=== PATIENT | female | born 1945 | race Caucasian/White ===

== ENCOUNTER 2022-07-17 11:40 | Outpatient (CLI) | payer BC, MEDICARE | END 2022-07-17 11:41 | disposition home or self-care (01) | LOC: CSHRAD 11:40 | PROVIDERS: ATTEND Nurse Practitioner Family | DX: J31.0 Chronic rhinitis (principal) | CPT/HCPCS: 71046 ==

== ENCOUNTER 2022-08-29 11:26 | Outpatient (CLI) | payer BC, MEDICARE | END 2022-08-29 11:27 | disposition home or self-care (01) | LOC: CSHRAD 11:26 | PROVIDERS: ATTEND Internal Medicine | DX: R05.9 Cough, unspecified (principal) | CPT/HCPCS: 71046 ==

== ENCOUNTER 2023-02-19 13:19 | Outpatient (CLI) | payer BC, MEDICARE | END 2023-02-19 13:20 | disposition home or self-care (01) | LOC: CSHMAMMO 13:19 | PROVIDERS: ATTEND Internal Medicine | DX: Z12.31 Encounter for screening mammogram for malignant neoplasm of breast (principal); Z13.820 Encounter for screening for osteoporosis; Z78.0 Asymptomatic menopausal state; M85.832 Other specified disorders of bone density and structure, left forearm | CPT/HCPCS: 77063; 77067; 77080 ==

== ENCOUNTER 2023-03-21 20:49 | Inpatient (IN) | payer BC, MEDICARE ==
[~2023-03-21 20:49] MED LIST: Iopamidol 300 61% 100 ML VIAL FS ONE
[2023-03-21 21:56] LABS: Bilirubin Neg (Negative); Blood, Urine Negative (Negative); Clarity Clear (Clear); Glucose, Urine (Dipstick) Normal (Negative); Ketone, Urine 15 mg/dL (Negative); Leukocyte Negative (Negative); Nitrite Negative (Negative); Protein, Urine (Dipstick) Negative (Neg-Trace); Urobilinogen Normal mg/dL (Less than 2)
[2023-03-21 22:11] LABS: ALT (SGPT) 9 U/L (8-55); AST (SGOT) 21 U/L (5-34); Albumin 4.5 g/dL (3.4-4.8); Alkaline Phosphatase 61 U/L (40-110); Anion Gap 17 mmol/L (10-20); BUN (Urea Nitrogen) 26 mg/dL (9.8-20.1); Bilirubin, Total 0.5 mg/dL (0.2-1.2); Calc. Creatinine Clearance 0 mL/min (70-130); Calcium 9.3 mg/dL (7.8-10.44); Carbon Dioxide 22 mmol/L (23-31); Chloride 103 mmol/L (98-107); Estimated GFR 45; Globulin 2.4 g/dL (2.4-3.5); Glucose 105 mg/dL (83-110); Potassium 3.6 mmol/L (3.5-5.1); Protein, Total 6.9 g/dL (5.8-8.1); Sodium 138 mmol/L (136-145)
[2023-03-21 22:12] LABS: Bacteria/HPF None Seen HPF (None Seen); CAUTI Indications for Culture Alt mental st,lethar; RBC/HPF None Seen HPF (0-3); Squamous Epithelial 0-3 HPF (0-3); WBC/HPF 0-3 HPF (0-3)
[2023-03-21 22:12] LABS: #Basophils 0.1 10x3/uL (0.0-0.2); #Monocytes 1.2 10x3/uL (0.0-1.1); #Neutrophils 17.5 10x3/uL (1.5-8.4); %Basophils 0.4 % (0.0-2.0); %Eosinophils 0.1 % (0.0-6.0); %Lymphocytes 2.2 % (18.0-47.0); %Monocytes 6.3 % (0.0-10.0); %Neutrophils 90.3 % (40.0-75.0); Hemoglobin 12.4 g/dL (12.0-15.5); Mean Corpuscular HGB CONC 32.6 g/dL (32.0-36.0); Mean Corpuscular Hemoglobin 29.5 pg (27.0-33.0); Mean Corpuscular Volume 90.3 fl (81.6-98.3); Mean Platelet Volume 9.9 fl (7.4-10.4); Platelet Count 246 10x3/uL (150-450); RBC Distribution Width 13.7 % (11.5-14.5); Red Blood Cell (RBC) Count 4.21 10x6/uL (3.90-5.03); White Blood Cell (WBC) Count 19.4 10x3/uL (3.5-10.5)
[2023-03-21 22:14] LABS: Urine Culture Reflex No No
[2023-03-21 22:19] LABS: Troponin I 0.028 ng/mL (< 0.028)
[2023-03-21 22:22] LABS: SARS-CoV-2 NAA Rapid Test Not Detected (NotDetected)
[2023-03-22] MEDS ORDERED: Acetaminophen 500 MG TAB ONE (01:28)
[2023-03-22] MEDS ORDERED: Piperacillin/Tazobactam 3.375 GM VIAL ONE (01:32)
[2023-03-22] MEDS ORDERED: Guaifenesin DM 100-10/5 ML UDCUP PO PRN (01:45)
[2023-03-22] MEDS ORDERED: HYDROcodone/Acetaminophen 5/325 mg Tablet PO PRN (01:45)
[2023-03-22] MEDS ORDERED: Senokot S 8.6-50 MG TAB PO PRN (01:45)
[2023-03-22] MEDS ORDERED: Calcium Carbonate 500 MG ChewTAB PO PRN (01:45)
[2023-03-22] MEDS ORDERED: Ondansetron PF 4 MG/2 ML Vial IVP PRN (01:45)
[2023-03-22] MEDS ORDERED: Lactated Ringer's 1,000 ML IV SCH (02:00)
[2023-03-22 03:21] VITALS: BMI 30.2
[2023-03-22] MEDS: Piperacillin/Tazobactam 3.375 GM in Sodium Chloride 0.9% 100 ML IVPB SCH ×3 (06:29→21:50)
[2023-03-22] MEDS ORDERED: Dronedarone HCl 400 MG TAB PO SCH (09:00)
[2023-03-22 09:01] LABS: ALT (SGPT) 8 U/L (8-55); AST (SGOT) 21 U/L (5-34); Alkaline Phosphatase 54 U/L (40-110); Anion Gap 18 mmol/L (10-20); BUN (Urea Nitrogen) 23 mg/dL (9.8-20.1); Bilirubin, Total 0.5 mg/dL (0.2-1.2); CRP (Inflammatory) 14.48 mg/dL (= or < 0.5); Calc. Creatinine Clearance 44 mL/min (70-130); Carbon Dioxide 22 mmol/L (23-31); Chloride 102 mmol/L (98-107); Estimated GFR 45; Globulin 2.7 g/dL (2.4-3.5); Glucose 98 mg/dL (83-110); Hematocrit 35.4 % (34.9-44.5); Hemoglobin 11.7 g/dL (12.0-15.5); Lipase 29 U/L (8-78); Mean Corpuscular HGB CONC 33.1 g/dL (32.0-36.0); Mean Corpuscular Hemoglobin 29.6 pg (27.0-33.0); Mean Corpuscular Volume 89.6 fl (81.6-98.3); Platelet Count 258 10x3/uL (150-450); Potassium 4.4 mmol/L (3.5-5.1); Protein, Total 6.7 g/dL (5.8-8.1); RBC Distribution Width 13.9 % (11.5-14.5); Red Blood Cell (RBC) Count 3.95 10x6/uL (3.90-5.03); Sodium 138 mmol/L (136-145)
[2023-03-22] MEDS: Metoprolol Tartrate 25 MG TAB PO SCH ×2 (09:24→09:55)
[2023-03-22] MEDS: Lactated Ringer's 1,000 ML IV SCH ×2 (09:54→16:31)
[2023-03-22] MEDS: Aspirin 81 mg Enteric Coated Tablet PO SCH (09:54)
[2023-03-22] MEDS: Famotidine/PF 20 mg/2ml Vial SLOW IVP SCH (09:55)
[2023-03-22] MEDS: Saccharomyces boulardii 250 MG CAP PO SCH (09:56)
[2023-03-22 09:57] LABS: MDiff Complete? YES
[2023-03-22 10:32] LABS: Band 3 % (5-11); Lymphocytes 1 % (21-51); Monocytes 2 % (0-10); Neutrophil 92 % (42-75); Reactive Lymphocytes 2 % (0-10)
[2023-03-22 10:33] LABS: Platelet Adequacy Comment Appears Adequate; RBC Morph Comment Within Normal Limits
[2023-03-22] MEDS: Acetaminophen 325 MG TAB PO PRN ×2 (10:50→20:41)
[2023-03-22] MEDS ORDERED: Acetaminophen 500 MG TAB PO SCH (12:00)
[2023-03-22] MEDS: Dronedarone HCl 400 MG TAB PO SCH (16:31)
[2023-03-22] MEDS: Rosuvastatin 20 MG TAB PO SCH (20:38)
[2023-03-23] MEDS ORDERED: Acetaminophen 325 MG TAB PO SCH (03:45)
[2023-03-23] MEDS: Lactated Ringer's 1,000 ML IV SCH ×2 (04:32→08:03)
[2023-03-23] MEDS: Piperacillin/Tazobactam 3.375 GM in Sodium Chloride 0.9% 100 ML IVPB SCH ×3 (06:07→22:15)
[2023-03-23 06:16] LABS: #Basophils 0.1 10x3/uL (0.0-0.2); #Eosinphils 0.1 10x3/uL (0.0-0.5); #Monocytes 0.6 10x3/uL (0.0-1.1); #Neutrophils 12.9 10x3/uL (1.5-8.4); %Basophils 0.4 % (0.0-2.0); %Eosinophils 0.5 % (0.0-6.0); %Lymphocytes 6.9 % (18.0-47.0); %Monocytes 4.1 % (0.0-10.0); %Neutrophils 87.7 % (40.0-75.0); Hematocrit 34.9 % (34.9-44.5); Hemoglobin 11.6 g/dL (12.0-15.5); Mean Corpuscular HGB CONC 33.2 g/dL (32.0-36.0); Mean Corpuscular Hemoglobin 30.3 pg (27.0-33.0); Mean Corpuscular Volume 91.1 fl (81.6-98.3); Mean Platelet Volume 10.6 fl (7.4-10.4); Platelet Count 281 10x3/uL (150-450); RBC Distribution Width 14.3 % (11.5-14.5); Red Blood Cell (RBC) Count 3.83 10x6/uL (3.90-5.03); White Blood Cell (WBC) Count 14.7 10x3/uL (3.5-10.5)
[2023-03-23 06:19] LABS: ALT (SGPT) 9 U/L (8-55); AST (SGOT) 24 U/L (5-34); Albumin 3.7 g/dL (3.4-4.8); Alkaline Phosphatase 53 U/L (40-110); Anion Gap 14 mmol/L (10-20); BUN (Urea Nitrogen) 12 mg/dL (9.8-20.1); Bilirubin, Total 0.4 mg/dL (0.2-1.2); Calc. Creatinine Clearance 66 mL/min (70-130); Calcium 9.1 mg/dL (7.8-10.44); Carbon Dioxide 23 mmol/L (23-31); Chloride 105 mmol/L (98-107); Estimated GFR 73; Globulin 2.6 g/dL (2.4-3.5); Glucose 83 mg/dL (83-110); Lipase 28 U/L (8-78); Magnesium 1.8 mg/dL (1.6-2.6); Potassium 3.9 mmol/L (3.5-5.1); Protein, Total 6.3 g/dL (5.8-8.1); Sodium 138 mmol/L (136-145)
[2023-03-23] MEDS: Dronedarone HCl 400 MG TAB PO SCH ×2 (09:46→17:49)
[2023-03-23] MEDS: Saccharomyces boulardii 250 MG CAP PO SCH (09:46)
[2023-03-23] MEDS: Famotidine/PF 20 mg/2ml Vial SLOW IVP SCH ×2 (09:46→20:22)
[2023-03-23] MEDS: Aspirin 81 mg Enteric Coated Tablet PO SCH (09:46)
[2023-03-23] MEDS: Acetaminophen 325 MG TAB PO PRN (19:21)
[2023-03-23] MEDS: Rosuvastatin 20 MG TAB PO SCH (20:22)
[2023-03-23] MEDS: Amlodipine 10 MG TAB PO SCH (22:14)
[2023-03-24] MEDS: Acetaminophen 325 MG TAB PO PRN ×3 (04:08→20:39)
[2023-03-24 04:56] LABS: #Basophils 0.1 10x3/uL (0.0-0.2); #Eosinphils 0.3 10x3/uL (0.0-0.5); #Monocytes 0.9 10x3/uL (0.0-1.1); #Neutrophils 9.1 10x3/uL (1.5-8.4); %Basophils 0.5 % (0.0-2.0); %Eosinophils 2.3 % (0.0-6.0); %Lymphocytes 14.5 % (18.0-47.0); %Monocytes 7.1 % (0.0-10.0); %Neutrophils 75.2 % (40.0-75.0); Hematocrit 35.3 % (34.9-44.5); Hemoglobin 11.7 g/dL (12.0-15.5); Mean Corpuscular HGB CONC 33.1 g/dL (32.0-36.0); Mean Corpuscular Hemoglobin 29.6 pg (27.0-33.0); Mean Corpuscular Volume 89.4 fl (81.6-98.3); Mean Platelet Volume 10.6 fl (7.4-10.4); Platelet Count 213 10x3/uL (150-450); RBC Distribution Width 13.8 % (11.5-14.5); Red Blood Cell (RBC) Count 3.95 10x6/uL (3.90-5.03)
[2023-03-24 05:15] LABS: ALT (SGPT) 10 U/L (8-55); AST (SGOT) 26 U/L (5-34); Albumin 3.9 g/dL (3.4-4.8); Alkaline Phosphatase 53 U/L (40-110); Anion Gap 16 mmol/L (10-20); BUN (Urea Nitrogen) 7 mg/dL (9.8-20.1); Bilirubin, Total 0.3 mg/dL (0.2-1.2); Calc. Creatinine Clearance 68 mL/min (70-130); Calcium 9.4 mg/dL (7.8-10.44); Carbon Dioxide 22 mmol/L (23-31); Chloride 105 mmol/L (98-107); Estimated GFR 76; Globulin 2.9 g/dL (2.4-3.5); Glucose 73 mg/dL (83-110); Potassium 3.9 mmol/L (3.5-5.1); Protein, Total 6.8 g/dL (5.8-8.1); Sodium 139 mmol/L (136-145)
[2023-03-24] MEDS: Piperacillin/Tazobactam 3.375 GM in Sodium Chloride 0.9% 100 ML IVPB SCH ×2 (06:01→19:50)
[2023-03-24 06:55] LABS: Magnesium 1.8 mg/dL (1.6-2.6)
[2023-03-24] MEDS: Lactated Ringer's 1,000 ML IV SCH (07:05)
[2023-03-24] MEDS: Aspirin 81 mg Enteric Coated Tablet PO SCH (10:54)
[2023-03-24] MEDS: Saccharomyces boulardii 250 MG CAP PO SCH (10:54)
[2023-03-24] MEDS: Famotidine/PF 20 mg/2ml Vial SLOW IVP SCH ×2 (10:55→20:07)
[2023-03-24] MEDS ORDERED: Vancomycin 1.5 GRAM/300 ML BAG 1.5 GM in Premix Bag 1 BAG IVPB SCH (11:30)
[2023-03-24] MEDS: Dronedarone HCl 400 MG TAB PO SCH ×2 (13:39→16:45)
[2023-03-24] MEDS: Lidocaine 4% Patch TD SCH (13:39)
[2023-03-24] MEDS: Diclofenac 1% 50 GM TOPICAL GEL TP SCH ×3 (13:43→20:07)
[2023-03-24] MEDS: metroNIDAZOLE 500 MG TAB PO SCH ×2 (16:34→20:05)
[2023-03-24] MEDS: hydrALAZINE 25 MG TAB PO SCH (20:04)
[2023-03-24] MEDS: Rosuvastatin 20 MG TAB PO SCH (20:05)
[2023-03-24] MEDS: Amlodipine 10 MG TAB PO SCH (20:05)
[2023-03-24] MEDS: Cefepime 2 GM in Sodium Chloride 0.9% 100 ML IVPB SCH (20:07)
[2023-03-24 22:38] LABS: Campy jejuni + coli by PCR Negative (Negative); STEC Shiga Toxin 1+2 Negative (Negative); Salmonella spp. by PCR Negative (Negative); Shigella spp + EIEC by PCR Negative (Negative)
[2023-03-24] MEDS: Transdermal Patch Removal TOP SCH (23:45)
[2023-03-25] MEDS: Lactated Ringer's 1,000 ML IV SCH (00:30)
[2023-03-25 05:01] LABS: #Basophils 0.1 10x3/uL (0.0-0.2); #Eosinphils 0.3 10x3/uL (0.0-0.5); #Monocytes 0.5 10x3/uL (0.0-1.1); #Neutrophils 5.8 10x3/uL (1.5-8.4); %Eosinophils 3.6 % (0.0-6.0); %Lymphocytes 18.4 % (18.0-47.0); %Monocytes 6.5 % (0.0-10.0); %Neutrophils 69.8 % (40.0-75.0); Hematocrit 34.9 % (34.9-44.5); Hemoglobin 11.7 g/dL (12.0-15.5); Mean Corpuscular HGB CONC 33.5 g/dL (32.0-36.0); Mean Corpuscular Hemoglobin 29.5 pg (27.0-33.0); Mean Corpuscular Volume 87.9 fl (81.6-98.3); Mean Platelet Volume 10.3 fl (7.4-10.4); Platelet Count 240 10x3/uL (150-450); RBC Distribution Width 13.5 % (11.5-14.5); Red Blood Cell (RBC) Count 3.97 10x6/uL (3.90-5.03); White Blood Cell (WBC) Count 8.3 10x3/uL (3.5-10.5)
[2023-03-25 05:09] LABS: ALT (SGPT) 8 U/L (8-55); AST (SGOT) 19 U/L (5-34); Albumin 3.9 g/dL (3.4-4.8); Alkaline Phosphatase 59 U/L (40-110); Anion Gap 15 mmol/L (10-20); BUN (Urea Nitrogen) 7 mg/dL (9.8-20.1); Bilirubin, Total 0.4 mg/dL (0.2-1.2); Calc. Creatinine Clearance 64 mL/min (70-130); Calcium 9.6 mg/dL (7.8-10.44); Carbon Dioxide 22 mmol/L (23-31); Chloride 107 mmol/L (98-107); Estimated GFR 71; Globulin 2.7 g/dL (2.4-3.5); Glucose 96 mg/dL (83-110); Magnesium 1.7 mg/dL (1.6-2.6); Potassium 3.5 mmol/L (3.5-5.1); Protein, Total 6.6 g/dL (5.8-8.1); Sodium 140 mmol/L (136-145)
[2023-03-25] MEDS: Losartan Potassium 50 MG TAB PO SCH (10:03)
[2023-03-25] MEDS: hydrALAZINE 25 MG TAB PO SCH ×2 (10:04→22:04)
[2023-03-25] MEDS: Dronedarone HCl 400 MG TAB PO SCH ×2 (10:05→17:46)
[2023-03-25] MEDS: Saccharomyces boulardii 250 MG CAP PO SCH (10:06)
[2023-03-25] MEDS: Aspirin 81 mg Enteric Coated Tablet PO SCH (10:07)
[2023-03-25] MEDS: metroNIDAZOLE 500 MG TAB PO SCH ×3 (10:07→22:03)
[2023-03-25] MEDS: DULoxetine 30 MG CAP PO SCH (10:07)
[2023-03-25] MEDS: Acetaminophen 325 MG TAB PO PRN (10:09)
[2023-03-25] MEDS: Cefepime 2 GM in Sodium Chloride 0.9% 100 ML IVPB SCH ×2 (10:09→22:59)
[2023-03-25] MEDS: Famotidine/PF 20 mg/2ml Vial SLOW IVP SCH ×2 (10:14→22:04)
[2023-03-25] MEDS: Lidocaine 4% Patch TD SCH ×2 (10:15→22:04)
[2023-03-25] MEDS: Diclofenac 1% 50 GM TOPICAL GEL TP SCH ×4 (11:42→23:10)
[2023-03-25] MEDS ORDERED: Vancomycin HCl 1 GM in Sodium Chloride 0.9% 250 ML 250 ML IVPB SCH (14:00)
[2023-03-25] MEDS: Apixaban 5 MG TAB PO SCH (22:03)
[2023-03-25] MEDS: Amlodipine 10 MG TAB PO SCH (22:03)
[2023-03-25] MEDS: Rosuvastatin 20 MG TAB PO SCH (22:04)
[2023-03-25] MEDS: Transdermal Patch Removal TOP SCH (23:10)
[2023-03-26 04:30] LABS: #Basophils 0.1 10x3/uL (0.0-0.2); #Eosinphils 0.4 10x3/uL (0.0-0.5); #Monocytes 0.8 10x3/uL (0.0-1.1); #Neutrophils 5.8 10x3/uL (1.5-8.4); %Basophils 0.8 % (0.0-2.0); %Eosinophils 4.2 % (0.0-6.0); %Lymphocytes 18.2 % (18.0-47.0); %Neutrophils 66.5 % (40.0-75.0); Hematocrit 34.7 % (34.9-44.5); Hemoglobin 11.7 g/dL (12.0-15.5); Mean Corpuscular HGB CONC 33.7 g/dL (32.0-36.0); Mean Corpuscular Hemoglobin 29.1 pg (27.0-33.0); Mean Corpuscular Volume 86.3 fl (81.6-98.3); Mean Platelet Volume 10.1 fl (7.4-10.4); Platelet Count 257 10x3/uL (150-450); RBC Distribution Width 13.2 % (11.5-14.5); Red Blood Cell (RBC) Count 4.02 10x6/uL (3.90-5.03); White Blood Cell (WBC) Count 8.8 10x3/uL (3.5-10.5)
[2023-03-26 04:43] LABS: ALT (SGPT) 12 U/L (8-55); AST (SGOT) 29 U/L (5-34); Albumin 3.8 g/dL (3.4-4.8); Alkaline Phosphatase 63 U/L (40-110); Anion Gap 13 mmol/L (10-20); BUN (Urea Nitrogen) 9 mg/dL (9.8-20.1); Bilirubin, Total 0.3 mg/dL (0.2-1.2); Calc. Creatinine Clearance 70 mL/min (70-130); Calcium 9.4 mg/dL (7.8-10.44); Carbon Dioxide 22 mmol/L (23-31); Chloride 107 mmol/L (98-107); Estimated GFR 78; Globulin 2.7 g/dL (2.4-3.5); Glucose 102 mg/dL (83-110); Magnesium 1.7 mg/dL (1.6-2.6); Potassium 3.3 mmol/L (3.5-5.1); Protein, Total 6.5 g/dL (5.8-8.1); Sodium 139 mmol/L (136-145)
[2023-03-26] MEDS ORDERED: Magnesium 2 GM/50 ML(in water) 2 GM in Premix Bag 1 BAG IVPB SCH (08:30)
[2023-03-26 08:44] VITALS: BP 139/64; TEMP 98.6
[2023-03-26] MEDS ORDERED: Doxycycline 100 MG CAP PO SCH (09:00)
[2023-03-26] MEDS ORDERED: LevoFLOXacin 750 MG TAB PO SCH (09:00)
[2023-03-26] MEDS: Dronedarone HCl 400 MG TAB PO SCH (09:25)
[2023-03-26] MEDS: Losartan Potassium 50 MG TAB PO SCH (09:26)
[2023-03-26] MEDS: Apixaban 5 MG TAB PO SCH (09:26)
[2023-03-26] MEDS: DULoxetine 30 MG CAP PO SCH (09:26)
[2023-03-26] MEDS: metroNIDAZOLE 500 MG TAB PO SCH (09:26)
[2023-03-26] MEDS: Famotidine/PF 20 mg/2ml Vial SLOW IVP SCH (09:26)
[2023-03-26] MEDS: hydrALAZINE 25 MG TAB PO SCH (09:26)
[2023-03-26] MEDS: Aspirin 81 mg Enteric Coated Tablet PO SCH (09:26)
[2023-03-26] MEDS: Diclofenac 1% 50 GM TOPICAL GEL TP SCH (09:27)
[2023-03-26] MEDS: Saccharomyces boulardii 250 MG CAP PO SCH (09:27)
[2023-03-26] MEDS: Acetaminophen 325 MG TAB PO PRN (09:37)
[2023-03-27] MEDS ORDERED: LevoFLOXacin 750 MG TAB PO SCH (06:00)
== END 2023-03-26 11:11 | disposition home or self-care (01) | DRG 871 ==
LOC: CSHERS 20:49 → OBSVTOIN 03-22 02:33 → CSHTELE 03-22 02:33
PROVIDERS: ADMIT Student in an Organized Health Care Education/Training Program; ATTEND Family Medicine
DX: A41.9 Sepsis, unspecified organism (principal); J96.01 Acute respiratory failure with hypoxia; L03.116 Cellulitis of left lower limb; N17.9 Acute kidney failure, unspecified; K82.1 Hydrops of gallbladder; K83.8 Other specified diseases of biliary tract; I35.0 Nonrheumatic aortic (valve) stenosis; Z20.822 Contact with and (suspected) exposure to COVID-19; I10 Essential (primary) hypertension; M19.90 Unspecified osteoarthritis, unspecified site; Z96.643 Presence of artificial hip joint, bilateral; G89.29 Other chronic pain; M54.9 Dorsalgia, unspecified; K58.0 Irritable bowel syndrome with diarrhea; E78.5 Hyperlipidemia, unspecified; I25.10 Atherosclerotic heart disease of native coronary artery without angina pectoris; Z95.5 Presence of coronary angioplasty implant and graft; I48.0 Paroxysmal atrial fibrillation; G47.33 Obstructive sleep apnea (adult) (pediatric); Z79.01 Long term (current) use of anticoagulants; Z79.899 Other long term (current) drug therapy; Z88.8 Allergy status to other drugs, medicaments and biological substances; Z79.82 Long term (current) use of aspirin
CPT/HCPCS: 36415; 71045; 74177; 74181; 76705; 78227; 80053; 81001; 83605; 83630; 83690; 83735; 84145; 84484; 85025; 85379; 86140; 87040; 87324; 87449; 87505; 93005; 94660; 94760; 94762; A9537; J0692; J1650; J2543; J3370; J3475; J3490; J7050; J7120; Q9967; S0028

== ENCOUNTER 2024-04-09 12:18 | Outpatient (CLI) | payer BC, MEDICARE | END 2024-04-09 12:19 | disposition home or self-care (01) | LOC: CSHMAMMO 12:18 | PROVIDERS: ATTEND Internal Medicine | DX: Z12.31 Encounter for screening mammogram for malignant neoplasm of breast (principal) | CPT/HCPCS: 77063; 77067 ==